=== PATIENT | male | born 1955 | race Caucasian/White ===

== ENCOUNTER 2019-05-04 08:22 | Day surgery (SDC) | payer SELFPAY ==
[2019-05-01 17:10] VITALS: BMI 41.3
[2019-05-04] VITALS (11 sets, daily range): BP systolic 148–189; BP diastolic 94–126; PULSE 89–121; RESP 9–20; TEMP 36.2–37.2; O2SAT 94–100
[2019-05-04] MEDS: sodium chloride 0.9% 1,000 ML 30 ML IV (08:57)
--- NOTE | 2019-05-04 09:32 | ANES.PREANE2 ---
Pre-Anesthetic Assessment Pre-Anesthetic Assessment: Height/Weight: Height 1.78 m Weight 130.635 kg Temp Pulse Resp BP Pulse Ox 98.0 F 121 H 16 189/123 96 05/04/19 08:38 05/04/19 08:38 05/04/19 08:38 05/04/19 08:38 05/04/19 08:38 Preop Diagnosis: Subcutaneous mass right shoulder Proposed Procedure: Operation Date: 05/04/19 10:15 Proposed Procedures p Excision of subcutaneous mass on right shoulder 73637 R22.9(Right) - Dallas Calixto MD Last intake: Intake Last Liquid Date 05/03/19 Last Liquid Time 19:00 Exam: Pre-Anes Outpt Exam: alert, oriented x 3, clear to auscultation bilaterally and regular rate & rhythm Airway: Submandibular: WNL Cervical ROM: Other MP: 3 Metabolic: Metabolic: Morbid obesity Anesthetic Plan: ASA status: 3 Meds/Allergies Current Medications: Current Medications Generic Name Dose Route Start Last Admin Trade Name Freq PRN Reason Stop Dose Admin Sodium Chloride 1,000 mls @ 30 ml s/hr 05/04/19 08:45 05/04/19 08:57 Sodium Chloride 0.9% IV 05/05/19 08:44 30 mls/hr .Q24H EVELYNE Administration PFSH Anesthesia PFSH: Social History Smoking and tobacco status: never smoked Alcohol intake: never Household members: family Marital status: Single Current occupational status: unemployed History of recent travel: No Data Anesthesia Cardiac Studies: No Data to Display
--- NOTE | 2019-05-04 09:44 | PM.HPUD ---
H&P update H&P Update: DATE OF SURGERY/PROCEDURE: 05/04/19 DATE H&P PERFORMED: 05/01/19 H&P UPDATE INFORMATION: H&P completed within last 30 days and No changes to prior documentation PREOP DIAGNOSIS: Subcutaneous mass right shoulder PLANNED PROCEDURE: Operation Date: 05/04/19 10:15 Proposed Procedures p Excision of subcutaneous mass on right shoulder 88624 R22.9(Right) - Dallas Calixto MD Full H&P Medications/Allergies: Current Medications: Current Medications Generic Name Dose Route Start Last Admin Trade Name Freq PRN Reason Stop Dose Admin Sodium Chloride 1,000 mls @ 30 ml s/hr 05/04/19 08:45 05/04/19 08:57 Sodium Chloride 0.9% IV 05/05/19 08:44 30 mls/hr .Q24H EVELYNE Administration Perinent History: Medical/Surgical History: Medical History (Updated 05/01/19 @ 11:08 by Dallas Calixto MD) Subcutaneous mass (Acute) Family History: Family History (Updated 05/01/19 @ 10:53 by Sherly Xiong LPN) Mother Hypertension Denies family history of Diabetes Anesthesia complication Bleeding disorder Cancer Social History: Social History Smoking and tobacco status: never smoked Alcohol intake: never Household members: family Marital status: Single Current occupational status: unemployed History of recent travel: No
[2019-05-04] MEDS: lidocaine 1% INJ 20 mL SUBCUT (10:42)
--- NOTE | 2019-05-04 11:30 | PM.OP ---
Operative Report Date of procedure: May 04, 2019 Pre-op Diagnosis: Subcutaneous mass right shoulder Post-op diagnosis: same Post-op Diagnosis: Lipoma measuring 20 x 15 cm Procedure Done: Excision of lipoma right shoulder measuring 20 x 15 cm Pathology: Right shoulder lipoma Surgeon: Dallas Calixto Anesthesia: General Estimated blood loss (mL): 10 Condition: stable Disposition: PACU Procedure: The patient was taken to the operating room and placed in the right lateral position under general anesthesia after IV antibiotic had been administered. A 8 cm transverse incision was made over the palpable mass on the right shoulder, subcutaneous tissue was divided and the lipoma was dissected free from the surrounding subcutaneous tissue and underlying muscular fascia using electrocautery. Hemostasis was ensured with cautery and the wound was irrigated saline. Using a 15 blade excess skin was excised and the subcutaneous tissues were approximated using running 3-0 Vicryl suture and skin was closed using running subcuticular 4-0 Monocryl suture and surgical glue. Pressure dressings were applied. Patient tolerated the procedure well. He was extubated and transferred to recovery room in stable condition.
[2019-05-04] MEDS: labetalol 5 mg/mL SDV 20mL IVP (11:43)
--- NOTE | 2019-05-04 11:54 | SUR.PHASEI ---
PT RESTING QUIETLY ON RA SINCE 114 NO DISTRESS WARM BLANKETS X 4 TO PT PT DENIES PAIN AND NAUSEA RT SHOULDER DRESSING D/I
== END 2019-05-04 12:45 | disposition home or self-care (01) ==
PROVIDERS: Family Provider Internal Medicine; PCP Internal Medicine; Visit Provider Surgery
PROC: (CPT 11406; principal; 2019-05-04 09:20)
DX: D17.39 Benign lipomatous neoplasm of skin and subcutaneous tissue of other sites (principal); E66.01 Morbid (severe) obesity due to excess calories; Z68.41 Body mass index [BMI] 40.0-44.9, adult; Z82.49 Family history of ischemic heart disease and other diseases of the circulatory system
CPT/HCPCS: 11406; 12036; 12345; 88304; J0330; J0690; J1100; J1885; J2001; J2405; J2704; J3010; J3490; J7030

== ENCOUNTER 2025-03-15 01:51 | Observation (INO) | payer MEDICARE, MEDICAID, SELFPAY ==
[2025-03-15] VITALS (24 sets, daily range): BP systolic 98–188; BP diastolic 48–100; PULSE 92–128; RESP 14–24; TEMP 36.6–37.1; O2SAT 89–100; BMI 43.7
--- NOTE | 2025-03-15 02:03 | CTR_ITS ---
PROCEDURE INFORMATION: Exam: CT Cervical Spine Without Contrast Exam date and time: 03/15/2025 2:19 AM Age: 70 years old Clinical indication: Injury or trauma; Blunt trauma; EMS arrival for fall with seizure. Per EMS, patient fell while in bathroom striking head on toilet and having witnessed seizure. Patient confused and combative. Dried blood on face and blood was suctioned from airway. ; Additional info: Trauma alert, seziure TECHNIQUE: Imaging protocol: Computed tomography of the cervical spine without contrast. Radiation optimization: All CT scans at this facility use at least one of these dose optimization techniques: automated exposure control; mA and/or kV adjustment per patient size (includes targeted exams where dose is matched to clinical indication); or iterative reconstruction. COMPARISON: CT head wo con* [id number] 03/15/2025 2:17 AM RADIATION DOSE METRICS: Total DLP (mGy-cm): 272.85 FINDINGS: Bones: No acute fracture of the cervical spine is identified. Extensive flowing bridging osteophytosis anteriorly from C2 through C7. Multilevel dorsal spondylosis as well, greatest at C4-C5. No severe central spinal canal stenosis. Lungs: Lung apices are unremarkable. Soft tissues: Unremarkable. CT/CT cervical spin wo con* [id number] IMPRESSION: No cervical spine fracture is identified.
--- NOTE | 2025-03-15 02:03 | CTR_ITS ---
PROCEDURE INFORMATION: Exam: CT Chest With Contrast; Diagnostic Exam date and time: 03/15/2025 2:21 AM Age: 70 years old Clinical indication: Injury or trauma; Abdominal wall; Blunt trauma (contusions or hematomas); Prior surgery; Surgery date: 6+ months; Surgery type: Left jhon; EMS arrival for fall with seizure. Per EMS, patient fell while in bathroom striking head on toilet and having witnessed seizure. Patient confused and combative. Dried blood on face and blood was suctioned from airway. ; Additional info: Trauma alert, seziure TECHNIQUE: Imaging protocol: Diagnostic computed tomography of the chest with contrast. Radiation optimization: All CT scans at this facility use at least one of these dose optimization techniques: automated exposure control; mA and/or kV adjustment per patient size (includes targeted exams where dose is matched to clinical indication); or iterative reconstruction. Contrast material: OMNI 350; Contrast volume: 100 ml; Contrast route: INTRAVENOUS (IV); COMPARISON: CT cervical spin wo con* [id number] 03/15/2025 2:19 AM RADIATION DOSE METRICS: Total DLP (mGy-cm): 1374.71 FINDINGS: Lungs: Atelectasis at the lung bases. Pleural spaces: Unremarkable. No pneumothorax. No pleural effusion. Heart: Unremarkable. No cardiomegaly. No pericardial effusion. Lymph nodes: Unremarkable. No enlarged lymph nodes. Vasculature: Atherosclerotic changes of the aorta. Bones/joints: Degenerative changes of the spine. Soft tissues: Unremarkable. PROCEDURE INFORMATION: Exam: CT Abdomen And Pelvis With Contrast Exam date and time: 03/15/2025 2:21 AM Age: 70 years old Clinical indication: Injury or trauma; Abdominal wall; Blunt trauma (contusions or hematomas); Prior surgery; Surgery date: 6+ months; Surgery type: Left jhon; EMS arrival for fall with seizure. Per EMS, patient fell while in bathroom striking head on toilet and having witnessed seizure. Patient confused and combative. Dried blood on face and blood was suctioned from airway. ; Additional info: Trauma alert, seziure TECHNIQUE: Imaging protocol: Computed tomography of the abdomen and pelvis with contrast. Radiation optimization: All CT scans at this facility use at least one of these dose optimization techniques: automated exposure control; mA and/or kV adjustment per patient size (includes targeted exams where dose is matched to clinical indication); or iterative reconstruction. Contrast material: OMNI 350; Contrast volume: 100 ml; Contrast route: INTRAVENOUS (IV); COMPARISON: No relevant prior studies available. RADIATION DOSE METRICS: Total DLP (mGy-cm): 1374.71 FINDINGS: Liver: Normal. No mass. Gallbladder and biliary ducts: Normal. No calcified stones. No ductal dilation. Pancreas: Normal. No ductal dilation. Spleen: Normal. No splenomegaly. Adrenal glands: Normal. No mass. Kidneys and ureters: Normal. No hydronephrosis. Stomach and bowel: Unremarkable. No obstruction. No mucosal thickening. Appendix: No evidence of appendicitis. Intraperitoneal space: Unremarkable. No free air. No significant fluid collection. Vasculature: Atherosclerotic changes of the aorta. Lymph nodes: Unremarkable. No enlarged lymph nodes. Urinary bladder: Unremarkable as visualized. Reproductive: Unremarkable as visualized. Bones/joints: Degenerative changes of the spine. Left hip arthroplasty. Motion artifact gives false appearance of bilateral iliac bone fractures. Soft tissues: Unremarkable. CT/CT chest abdpel w/*[id number] IMPRESSION: No acute traumatic findings.
--- NOTE | 2025-03-15 02:03 | CTR_ITS ---
PROCEDURE INFORMATION: Exam: CT Head Without Contrast Exam date and time: 03/15/2025 2:17 AM Age: 70 years old Clinical indication: Injury or trauma; EMS arrival for fall with seizure. Per EMS, patient fell while in bathroom striking head on toilet and having witnessed seizure. Patient confused and combative. Dried blood on face and blood was suctioned from airway. ; Additional info: Trauma alert, seziure TECHNIQUE: Imaging protocol: Computed tomography of the head without contrast. Radiation optimization: All CT scans at this facility use at least one of these dose optimization techniques: automated exposure control; mA and/or kV adjustment per patient size (includes targeted exams where dose is matched to clinical indication); or iterative reconstruction. COMPARISON: No relevant prior studies available. RADIATION DOSE METRICS: Total DLP (mGy-cm): 1062.65 FINDINGS: Brain: No acute infarction, hemorrhage, mass, or extra-axial fluid collection is identified. No midline shift. Cerebral ventricles: No hydrocephalus. Paranasal sinuses: [id number] mucosal thickening of paranasal sinuses. No air-fluid levels. Mastoid air cells: Mastoid air cells are grossly clear. Bones: Calvarium appears intact. Soft tissues: Unremarkable. CT/CT head wo con* [id number] IMPRESSION: No acute intracranial abnormality.
--- NOTE | 2025-03-15 02:10 | W.ED.FALL ---
HPI - Fall General: Chief Complaint: Fall Stated Complaint: FALL - SEIZURE Time Seen by Provider: 03/15/25 02:03 History of Present Illness: Patient is a 70-year-old male with past medical history of hypertension who presents to the ED with a reported seizure. Unclear events but EMS was called for confusion by patient's mother and when they found patient he was seemingly confused, he was initially declining transfer, and then in front of them, he had a 45-second GTC, reported no history of seizures. It was aborted before medications were given. Patient arrives altered and not able to contribute to history. Related Data Previous Rx's ?Medication ?Instructions ?Recorded amlodipine 10 mg tablet 10 mg PO DAILY #90 tabs 12/31/24 losartan 100 See Rx Instructions .Route 12/31/24 mg-hydrochlorothiazide 12.5 mg .COMPLEX #90 tabs tablet metoprolol succinate 50 mg 50 mg PO BID high blood pressure 12/31/24 tablet,extended release 24 hr #180 tabs Allergies Allergy/AdvReac Type Severity Reaction Status Date / Time No Known Allergies Allergy Verified 12/31/24 08:52 Review of Systems General: Reports: ROS unobtainable due to mental status [facility] ED PFSH: Medical History (Updated 03/15/25 @ 06:21 by Koffi Mix DO) BMI 40.0-44.9, adult Allergic rhinitis due to allergen Hypertension Surgical History Status post excision of lipoma Right shoulder 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 Patient and his mother live together to pull finances. She walks with a walker. Household members: family Marital status: Single Current occupational status: unemployed and retired Previous occupational history: [employer] Physical Exam Narrative: EXAM NARRATIVE: Patient obese, GCS 12, tachycardic, tachypneic, saturating in the low 90s on 2 L nasal cannula. Patient encephalopathic, GCS 12, E4V3M5. Spontaneous and symmetric clean moving all 4 extremities but not to command. Sounds mildly rhonchorous, face covered with slight amount of blood, breath sounds decreased but present bilaterally. Tachycardic, hypertensive, moderate nonpitting edema with findings of chronic venous stasis dermatitis. Abdomen protuberant but soft and nondistended, no chest wall tenderness, no external signs of trauma. Course Vital Signs: Vital signs: Vital Signs Temperature 98.7 F 03/15/25 02:04 Pulse Rate 109 H 03/15/25 05:31 Respiratory Rate 15 03/15/25 05:31 Blood Pressure 170/99 03/15/25 05:31 Pulse Oximetry 93 03/15/25 05:31 Oxygen Delivery Me thod Room Air 03/15/25 02:04 MDM - Fall Medical Decision Making -ddx: Toxic metabolic encephalopathy, sepsis, seizure, head trauma, dehydration, heart failure, UTI, ACS, dysrhythmia, aspiration - Patient MRIs GCS 12, was apparently 5 but seemingly that was postictal, had a 45-second self aborting seizure, reported first history of this, apparently lives at home and normally takes care of his mom, only takes medication for high blood pressure but has not followed up in quite some time. Patient with mild evidence of aspiration, encephalopathic, very agitated not following commands and had to give 5 of IV Versed to facilitate workup and take to CT scanner. - Had brief episode of hypoxia in CT scanner when he was laid flat, he was placed on a nonrebreather with improvement in his saturations and stabilized upon sitting up, required restraints for a brief period of time. - After about an hour and patient initially stabilized, his mental status seemed to return and he could not have full conversations, had no recollection of the past few hours, confirms he has no history of seizures. Initial white count of 20, with very erratic vital signs and his mental status on arrival, was covered with broad-spectrum antibiotics, given 2 g Keppra. No recurrent episodes of seizure-like activity, believe lactate of 10 and ammonia being over 100 to be attributable to his seizure. Patient most likely has sepsis of unknown origin. No evidence of traumatic injury on his james CT scans. - Patient's repeat lactate was 2.5, had elevated ammonia and lactate of 10 at first but seemingly attributable to seizure, no more activity. Remainder of labs relatively unremarkable, no obvious etiology of infection but for continued bacteremia evaluation, monitoring of his seizures, overall respiratory status and vital signs, he was admitted to the hospital in immediately stabilized condition at this time. Lab Data 03/15/25 01:57 03/15/25 01:57 Radiology Impressions Cervical Spine CT 03/15/25 02:03 IMPRESSION: No cervical spine fracture is identified. Chest/Abdomen/Pelvis CT 03/15/25 02:03 IMPRESSION: No acute traumatic findings. IMPRESSION: No acute traumatic findings. Head CT 03/15/25 02:03 IMPRESSION: No acute intracranial abnormality. Laboratory Results WBC 19.92 10^3/uL (3.29-11.43) H 03/15/25 01:57 RBC 4.64 10^6/uL (3.85-5.65) 03/15/25 01:57 Hgb 13.80 g/dL (11.27-16.99) 03/15/25 01:57 Hct 42.2 % (37-53) 03/15/25 01:57 MCV 90.9 fl (82-101) 03/15/25 01:57 MCH 29.7 pg (27-33) 03/15/25 01:57 MCHC 32.7 g/dL (30-55) 03/15/25 01:57 RDW 13.8 % (12.1-15.1) 03/15/25 01:57 Plt Count 451 10^3/cmm (157-399) H 03/15/25 01:57 MPV 9.2 fL (7.4-10.4) 03/15/25 01:57 Neut % (Auto) 69.2 % 03/15/25 01:57 Lymph % (Auto) 22.8 % 03/15/25 01:57 [place] % (Auto) 5.8 % 03/15/25 01:57 Eos % (Auto) 1.1 % 03/15/25 01:57 Baso % (Auto) 0.4 % 03/15/25 01:57 Neut # (Auto) 13.79 10^3/uL (1.8-7.7) H 03/15/25 01:57 Lymph # (Auto) 4.5 10^3/uL (0.8-4.8) 03/15/25 01:57 [place] # (Auto) 1.2 10^3/uL (0.2-0.9) H 03/15/25 01:57 Eos # (Auto) 0.2 10^3/uL (0.0-0.8) 03/15/25 01:57 Baso # (Auto) 0.1 10^3/uL (0.0-0.1) 03/15/25 01:57 Nucleated RBC % (auto) 0 % 03/15/25 01:57 Nucleated RBCs # 0.0 /100WBC 03/15/25 01:57 PT 12.70 SECONDS (12.1-14.9) 03/15/25 01:57 INR 0.89 (0.8-1.2) 03/15/25 01:57 Sodium 140 mmol/L (136-145) 03/15/25 01:57 Potassium 3.4 mmol/L (3.5-5.1) L 03/15/25 01:57 Chloride 99 mmol/L (98-107) 03/15/25 01:57 Carbon Dioxide 20 mmol/L (22-29) L 03/15/25 01:57 Anion Gap 24.4 (5-19) H 03/15/25 01:57 BUN 22 mg/dL (8-23) 03/15/25 01:57 Creatinine 1.1 mg/dL (0.7-1.2) 03/15/25 01:57 GFR Calculation 66.6 mL/min (90-130) L 03/15/25 01:57 Glucose 176 mg/dL (65-115) H 03/15/25 01:57 Estimat Average Glucose 111 03/15/25 01:57 Hemoglobin A1c 5.5 % (4.0-6.0) 03/15/25 01:57 Calculated Osmolality 298 mOsm/kg (285-295) H 03/15/25 01:57 Lactic Acid 10.7 mmol/L (0.5-2.2) H* 03/15/25 01:57 Lactic Acid (Sepsis) 2.5 mmol/L (0.5-2.2) H 03/15/25 04:48 Calcium 9.0 mg/dL (8.5-10.5) 03/15/25 01:57 Phosphorus 3.9 mg/dL (2.5-4.5) 03/15/25 01:57 Magnesium 2.2 mg/dL (1.7-2.3) 03/15/25 01:57 Total Bilirubin 0.3 mg/dL (0.15-1.2) 03/15/25 01:57 AST 17 U/L (0-40) 03/15/25 01:57 ALT 13 U/L (0-41) 03/15/25 01:57 Alkaline Phosphatase 90 U/L (40-130) 03/15/25 01:57 Ammonia 118 umol/L (16-60) H 03/15/25 01:57 Creatine Kinase 181 U/L (39-308) 03/15/25 01:57 Total Protein 6.9 g/dL (6.6-8.7) 03/15/25 01:57 Albumin 4.2 g/dL (3.5-5.2) 03/15/25 01:57 Globulin 2.7 g/dL (1.3-4.6) 03/15/25 01:57 Procalcitonin 0.10 ng/mL (0-0.5) 03/15/25 01:57 Urine Color Yellow (Yellow) 03/15/25 05:00 Urine Appearance Clear (CLEAR) 03/15/25 05:00 Urine pH 5.0 (5-7) 03/15/25 05:00 Ur Specific [place] 1.056 (1.005-1.030) H 03/15/25 05:00 Urine Protein Trace (Negative) A 03/15/25 05:00 Urine Glucose (UA) Negative (Normal) 03/15/25 05:00 Urine Ketones Negative (Negative) 03/15/25 05:00 Urine Blood Negative (Negative) 03/15/25 05:00 Urine Nitrate Negative (Negative) 03/15/25 05:00 Urine Bilirubin Negative (Negative) 03/15/25 05:00 Urine Urobilinogen 0.2 mg/dL (Negative) 03/15/25 05:00 Ur Leukocyte Esterase Negative (Negative) 03/15/25 05:00 Urine RBC 0-2 /hpf (0-2) 03/15/25 05:00 Urine WBC 0-5 /hpf (0-5) 03/15/25 05:00 Ur Squamous Epith Cells 0-5 /hpf (0-5) 03/15/25 05:00 Amorphous Sediment Not Reportable 03/15/25 05:00 Urine Bacteria None seen /hpf (NONE) 03/15/25 05:00 Hyaline Casts 1.65 /lpf 03/15/25 05:00 Urine Opiates Screen Negative ng/mL (Negative) 03/15/25 05:00 Ur Barbiturates Screen Negative ng/mL (Negative) 03/15/25 05:00 Ur Phencyclidine Scrn Negative ng/mL (Negative) 03/15/25 05:00 Ur Amphetamines Screen Negative ng/mL (Negative) 03/15/25 05:00 U Benzodiazepines Scrn Negative ng/mL (Negative) 03/15/25 05:00 Urine Cocaine Screen Negative ng/mL (Negative) 03/15/25 05:00 U Marijuana (THC) Screen Negative ng/mL (Negative) 03/15/25 05:00 Ethyl Alcohol < 10 mg/dL (0-10) 03/15/25 01:57 Blood Type O Positive 03/15/25 02:42 Rho(D) Type Rh positive 03/15/25 02:42 Antibody Screen Negative 03/15/25 02:42 All radiology interpretation(s) finalized by discharge Critical Care Time Critical Care Time: Critical Care Time: Yes Total Critical Care Time: 41 Attestation: Encephalopathy with depressed GCS requiring frequent airway manipulation and reevaluation for need for intubation, bacteremia of unknown origin, multiple vital sign abnormalities requiring intervention. Discharge Plan Discharge Patient Disposition: Admitted As Inpatient Admit Provider: Desmond Barillas Clinical Impression: Seizure, Bacteremia, Encephalopathy Condition: Stable Coding Level of Care Code ED Idea Worker for Mayra Aparicio
[2025-03-15 02:13] LABS: Hematocrit 42.2 % (37-53); Hemoglobin 13.80 g/dL (11.27-16.99); Mean Corpuscular HGB Conc 32.7 g/dL (30-55); Mean Corpuscular Hemoglobin 29.7 pg (27-33); Mean Corpuscular Volume 90.9 fl (82-101); Nucleated Red Blood Cells % 0 %; Platelet Count 451 10^3/cmm (157-399); Red Blood Count 4.64 10^6/uL (3.85-5.65); White Blood Count 19.92 10^3/uL (3.29-11.43)
[2025-03-15 02:29] LABS: INR 0.89 (0.8-1.2); Prothrombin Time 12.70 SECONDS (12.1-14.9)
[2025-03-15 02:38] LABS: Alanine Aminotransferase 13 U/L (0-41); Albumin Level 4.2 g/dL (3.5-5.2); Alkaline Phosphatase 90 U/L (40-130); Anion Gap 24.4 (5-19); Aspartate Amino Transferase 17 U/L (0-40); Blood Urea Nitrogen 22 mg/dL (8-23); Calcium 9.0 mg/dL (8.5-10.5); Carbon Dioxide 20 mmol/L (22-29); Chloride 99 mmol/L (98-107); Globulin 2.7 g/dL (1.3-4.6); Glucose 176 mg/dL (65-115); Osmolality Calculated 298 mOsm/kg (285-295); Potassium 3.4 mmol/L (3.5-5.1); Sodium 140 mmol/L (136-145); Total Protein 6.9 g/dL (6.6-8.7)
[2025-03-15] MEDS: cefepime 2,000 mg SDV 2000 MG IVP ×3 (02:38→17:33)
[2025-03-15] MEDS: iohexol 350 mg/mL 500 mL Btl (per mL) IV (02:38)
[2025-03-15 02:39] LABS: Ammonia 118 umol/L (16-60)
[2025-03-15 02:41] LABS: Alcohol Level < 10 mg/dL (0-10)
[2025-03-15 02:42] LABS: Lactic Sepsis W/Reflex 10.7 mmol/L (0.5-2.2)
[2025-03-15] MEDS: midazolam 1 mg/mL INJ 2 mL 5 MG IVP (02:46)
[2025-03-15 02:47] LABS: ABG PCO2 45.3 mmHg (35-45); ABG PH Result 7.33 (7.35-7.45); Arterial Blood Gas Hematocrit 40.1 % (42-52); Base Excess VBG -2.2 mmol/L (-3.0-3.0); Blood Gas Sample Type Venous; HCO3 ABG 23.9 mmol/L (22-26); HCO3 VBG 23.9 mmol/L (24-28); PCO2 VBG 45.3 mmHg (41-51); PO2 ABG 55.6 mmHg (80.0-100.0); PO2 VBG 55.6 mmHg (25-40); Venous Blood Gas Hematocrit 40.1 % (42-52); pH VBG 7.33 (7.32-7.42)
[2025-03-15] MEDS: levETIRAcetam 2,000 MG/200 ML PREMIX 400 MG IV (02:47)
[2025-03-15 03:01] LABS: Procalcitonin 0.10 ng/mL (0-0.5)
[2025-03-15 03:57] LABS: Reflex Lactate Order REFLEX LACTIC ORDERD
[2025-03-15 05:10] LABS: Lactic Acid level (Lactate) 2.5 mmol/L (0.5-2.2)
[2025-03-15 05:17] LABS: Glucose Urine UA Negative (Normal); Nitrate Urine Negative (Negative)
[2025-03-15 05:22] LABS: Add Urine Microscopic? YES
[2025-03-15 05:23] LABS: Specific Gravity, Urine 1.056 (1.005-1.030)
[2025-03-15 05:27] LABS: PCP Screen Urine Negative (Negative)
--- NOTE | 2025-03-15 05:57 | PM.HP ---
Providers/Chief Complaint Admitting Physician: Desmond Barillas MD Primary Care Provider: Diaz Ashton MD Chief Complaint: FALL - SEIZURE History of Present Illness Lucas Leon is a 70 year old male brought in following witnessed seizure. His mother found him in the bathroom facial injury next to the toilet. It was apparent that he had fallen and hit the toilet. Patient does not recall going to the bathroom. He has never had a seizure. He is not typically unsteady on his feet and does not have a history of falling. He denies cardiac arrhythmia or syncope. Patient initially had Elsa Coma Scale of 5 but it was 11 by the time he got to the emergency department. He was seen by Dr. Mix and suspected of seizure and started on levetiracetam. Patient also had elevated lactic acid and tachycardia initially suspicious for sepsis so started on broad-spectrum antibiotics. Patient has had blood culture sent and urine is negative for infection. CT chest abdomen pelvis also negative for trauma or pneumonia. CT head negative CT C-spine negative. Patient denies alcohol abuse states he does not drink at all he has never had liver disease or elevated ammonia. He does snore but has never been diagnosed with sleep apnea and does not get treated for such. He does not smoke cigarettes or use any street drugs. 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 Patient denies head injury ever Review of Systems Narrative: General No fevers chills weight gain he has had 10 pounds weight loss with effort lifting weights and walking patient drinks juice 2 glasses a day and heavy cream with his coffee. CV no chest pain palpitations he has had some leg edema Respiratory positive for snoring GI no nausea vomiting diarrhea constipation nocturia 2 times a night no dysuria hematuria Neuro no past seizures strokes Malignancy negative for cancers Medications/Allergies Home Medications ?Medication ?Instructions ?Recorded ?Confirmed ?Last Taken ?Type amlodipine 10 mg tablet 10 mg PO DAILY #90 tabs 12/31/24 12/31/24 Unknown Rx losartan 100 See Rx Instructions .Route 12/31/24 12/31/24 Unknown Rx mg-hydrochlorothiazide 12.5 mg .COMPLEX #90 tabs tablet metoprolol succinate 50 mg 50 mg PO BID high blood pressure 12/31/24 12/31/24 Unknown Rx tablet,extended release 24 hr #180 tabs Allergies Allergy/AdvReac Type Severity Reaction Status Date / Time No Known Allergies Allergy Verified 12/31/24 08:52 PFSH Acute PFSH: Medical History (Updated 03/15/25 @ 06:05 by Desmond Barillas MD) BMI 40.0-44.9, adult Allergic rhinitis due to allergen Hypertension Surgical History Status post excision of lipoma Right shoulder 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 Patient and his mother live together to pull finances. She walks with a walker. 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 He tracks with his eyes normally Oropharynx Mallampati 4 Neck patient has a short thick neck no obvious JVD CV regular borderline tachycardic rate and rhythm no loud murmurs Lungs clear to auscultation bilaterally Abdomen positive bowel tones soft obese nontender Calves 2+ bilateral pretibial edema with chronic venous stasis change Feet 2-3+ dorsal pedal edema dorsal pedal pulse 2+ radial pulses 2+ Data 03/15/25 01:57 03/15/25 01:57 Micro: Microbiology 03/15/25 02:42 Blood Culture - Preliminary Blood SPECIMEN COLLECTED 03/15/25 02:40 Blood Culture - Preliminary Blood SPECIMEN COLLECTED A&P Assessment and plan 1. Seizure: Patient with witnessed tonic-clonic seizure following his fall with facial injury. CT of the head was negative. Cause for his fall thought to be seizure as well. Patient had elevated lactic acid and ammonia but CPK was normal. Patient started on levetiracetam which will be continued. Consider outpatient follow-up with neurology. Consider workup for sleep apnea and treatment for the same 2. Hyperammonemia: Ammonia level was at 100 we will recheck. Patient does not have altered mental status 3. Lactic acidosis: Lactic acid was 10 now down to 2.5 findings are not consistent with sepsis at this time and more consistent with seizure related lactic acidosis 4. Sleep apnea-like behavior: Patient was snoring and Mallampati 4 oropharynx and morbid obesity now with seizures. High suspicion for sleep apnea and counseled that he should get tested for sleep study 5. BMI 40.0-44.9, adult: Patient drinking calories in form of heavy cream and coffee as well as juice daily. He is receptive to counseling and willing to follow calorie restricted diet 6. Hypertension: Resume home blood pressure medications including HCTZ but replace potassium. Additionally check magnesium and phosphorus PDMP PDMP Reviewed: Not Reviewed Attestations Medical Necessity Statement*: Patient is admitted in the hospital on observation post seizure started on antiepileptics and will require less than 2 midnights expected Coding Level of Care Code 30486 Diagnoses Seizure R56.9 Hyperammonemia E72.20 Lactic acidosis E87.20 Sleep apnea-like behavior G47.39 BMI 40.0-44.9, adult Z68.41 Hypertension I10 Time Spent (min) 75
[2025-03-15 06:10] LABS: Magnesium 2.2 mg/dL (1.7-2.3)
[2025-03-15 06:11] LABS: Estmated Average Glucose 111; Hemoglobin A1C 5.5 % (4.0-6.0)
--- NOTE | 2025-03-15 06:49 | PC.NURSE ---
I rajiv up 40 mg of etomidate and 150 mg of succincholyine to intubate this pt per Dr. Mix. Dr. Mix then decided not to intubate. I wasted the medications by putting them in the [employer] bin in ER 11.
[2025-03-15 06:58] LABS: Thyroid Stimulating Hormone 5.89 uIU/mL (0.27-4.20)
[2025-03-15] MEDS: sodium chlor 0.9% + KCl 20 mEq 20 MEQ/1,000 ML BAG 100 MEQ IV ×2 (08:28→17:33)
[2025-03-15] MEDS: levETIRAcetam 750 MG in sodium chloride 0.9% (100 ml) 100 ML 430 MG IV (16:14)
[2025-03-15] MEDS: metoprolol succinate ER (24 HR) 50 mg Tablet PO (16:15)
--- NOTE | 2025-03-15 19:00 | PM.MISC ---
Miscellaneous Note Purpose of Documentation: Post admission follow up and clinical assessment: Note: physical exam: General: Morbidly obese gentleman with short neck alert and oriented, lying comfortably without any distress HEENT: Normocephalic, atraumatic, having a bruise on the nose and tongue laceration on examination with dried blood on the lower lip possible tongue bite? Cardio: normal rate rhythm, normal S1-S2 without any murmurs, rubs, or gallops and JVD normal Respiratory: normal vascular breathing on auscultation without any wheezes, stridor, rhonchi GI: Abdomen soft, nontender, nondistended, normoactive bowel sounds present all 4 quadrants, Neuro: intact cranial nerves motor and sensory and cerebellar/coordination function without any focal neurological deficit Behavior: Appropriate and cooperative Extremities: Adequate palpable pulses, no edema or cyanosis observed Skin: grossly unremarkable exam Assessment/Plan: Seizures Case of seizures, high likely, not sure if first episode? 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
--- NOTE | 2025-03-15 21:17 | ECG_ITS ---
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[id number] Requested By: Heladio Lopez Order Number: [id number] Reading MD: MACIE DC Measurements Intervals [place] Rate: 101 P: 48 IA: 179 QRS: -57 QRSD: 128 T: 65 QT: 374 QTc: 486 Interpretive Statements SINUS TACHYCARDIA RIGHT BUNDLE BRANCH BLOCK [120+ ms QRS DURATION, UPRIGHT V1, 40+ ms S IN I/aVL/V4/V5/V6] LEFT ANTERIOR FASCICULAR BLOCK [QRS AXIS <= -45, QR IN I, RS IN II] PROBABLE SEPTAL MYOCARDIAL INFARCTION , OF INDETERMINATE AGE [35 ms Q WAVE IN V1/V2] Compared to ECG 03/09/2014 12:28:22 Right bundle-branch block now present Left anterior fascicular block now present Sinus rhythm no longer present Electronically Signed On 03-17-2025 20:39:31 DRUG ABUSE TECHNICIAN by MACIE DC [email or web address]
[2025-03-16] VITALS: BP 174/98; PULSE 108; RESP 20; TEMP 36.9; O2SAT 97
[2025-03-16] MEDS: sodium chlor 0.9% + KCl 20 mEq 20 MEQ/1,000 ML BAG 100 MEQ IV (03:20)
[2025-03-16] MEDS: levETIRAcetam 750 MG in sodium chloride 0.9% (100 ml) 100 ML 430 MG IV (03:21)
[2025-03-16] MEDS: cefepime 2,000 mg SDV 2000 MG IVP (03:21)
[2025-03-16 04:00] VITALS: BP 149/82; PULSE 109; RESP 18; TEMP 36.9; O2SAT 92
[2025-03-16 05:12] LABS: Hematocrit 39.5 % (37-53); Hemoglobin 13.20 g/dL (11.27-16.99); Mean Corpuscular HGB Conc 33.4 g/dL (30-55); Mean Corpuscular Hemoglobin 30.2 pg (27-33); Mean Corpuscular Volume 90.4 fl (82-101); Nucleated Red Blood Cells % 0 %; Platelet Count 306 10^3/cmm (157-399); Red Blood Count 4.37 10^6/uL (3.85-5.65); White Blood Count 9.05 10^3/uL (3.29-11.43)
[2025-03-16] MEDS: LOSARTAN 100 MG TABLET PO (05:21)
[2025-03-16] MEDS: metoprolol succinate ER (24 HR) 50 mg Tablet PO (05:21)
[2025-03-16 05:43] LABS: Alanine Aminotransferase 15 U/L (0-41); Albumin Level 3.4 g/dL (3.5-5.2); Alkaline Phosphatase 64 U/L (40-130); Anion Gap 13.3 (5-19); Aspartate Amino Transferase 41 U/L (0-40); Blood Urea Nitrogen 11 mg/dL (8-23); Calcium 7.8 mg/dL (8.5-10.5); Carbon Dioxide 22 mmol/L (22-29); Chloride 112 mmol/L (98-107); Globulin 2.1 g/dL (1.3-4.6); Glucose 84 mg/dL (65-115); Osmolality Calculated 293 mOsm/kg (285-295); Potassium 5.3 mmol/L (3.5-5.1); Sodium 142 mmol/L (136-145); Total Protein 5.5 g/dL (6.6-8.7)
[2025-03-16 06:00] VITALS: BMI 45.6
[2025-03-16 08:29] VITALS: BP 153/86; PULSE 108; RESP 19; TEMP 36.5; O2SAT 94
[2025-03-16 09:54] LABS: Free T4 Free Thyroxine 1.16 ng/dL (0.82-1.77)
[2025-03-16 11:12] VITALS: BP 130/74; PULSE 101; RESP 19; TEMP 36.9; O2SAT 96
[2025-03-16 14:49] VITALS: BP 130/74; PULSE 101; RESP 19; TEMP 36.9; O2SAT 96
--- NOTE | 2025-03-16 18:50 | PM.DCS ---
Discharge Providers Date of Admission: 03/15/25 06:30 Date of Discharge: March 16, 2025 Attending Provider at Admission: Desmond Barillas MD Attending Provider at Discharge: Heladio Lopez MD Primary Care Provider: Diaz Ashton MD Diagnoses at Discharge Discharge Diagnosis 1. Seizure: 2. Hyperammonemia: 3. Lactic acidosis: 4. Sleep apnea-like behavior: 5. BMI 40.0-44.9, adult: 6. Primary hypertension: Reason for Visit Reason for Visit: FALL - SEIZURE Brief History: As per the previous admitting physician note in the retrospective note review: Lucas Leon is a 70 year old male brought in following witnessed seizure. His mother found him in the bathroom facial injury next to the toilet. It was apparent that he had fallen and hit the toilet. Patient does not recall going to the bathroom. He has never had a seizure. He is not typically unsteady on his feet and does not have a history of falling. He denies cardiac arrhythmia or syncope. Patient initially had Elsa Coma Scale of 5 but it was 11 by the time he got to the emergency department. He was seen by Dr. Mix and suspected of seizure and started on levetiracetam. Patient also had elevated lactic acid and tachycardia initially suspicious for sepsis so started on broad-spectrum antibiotics. Patient has had blood culture sent and urine is negative for infection. CT chest abdomen pelvis also negative for trauma or pneumonia. CT head negative CT C-spine negative. Patient denies alcohol abuse states he does not drink at all he has never had liver disease or elevated ammonia. He does snore but has never been diagnosed with sleep apnea and does not get treated for such. He does not smoke cigarettes or use any street drugs. 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 Patient denies head injury ever Hospital Course Hospital Course Patient admitted as a case of seizures. And TIA was ruled out. I consulted neurologist and further recommended to start the patient on Keppra 750 mg twice daily. Patient labs improved after hydration. Keppra continued as outpatient. EEG and MRI ordered with neurology follow-up. Patient was informed about his plan of care and agreed with this. Primary care referral also provided for healthcare maintenance. Medications were reconciled after confirmation and according to patient comorbidities and appropriate follow-ups and referrals were provided at the time of discharge. Patient condition has been discussed at length with the patient/family, I have independently reviewed the chart labs imaging/diagnostics/EKG. the goals of care and code status with the patient/family/NOK/legal loss prevention representative, and documented accordingly. The management has been done according to the current clinical condition with respect to patient goals of care and based on recommendations/guidelines. The patient/family has been informed about the current condition and further plan of care. Agreed with the plan of care and understood without any language barrier. Every effort was made to ensure accuracy of content management consultant. Any obvious errors or omissions should be clarified with the author of the document. Physical Exam Narrative: General: Morbidly obese gentleman with short neck alert and oriented, lying comfortably without any distress HEENT: Normocephalic, atraumatic, having a bruise on the nose and tongue laceration on examination possible tongue bite Cardio: normal rate rhythm, normal S1-S2 without any murmurs, rubs, or gallops and JVD normal Respiratory: normal vascular breathing on auscultation without any wheezes, stridor, rhonchi GI: Abdomen soft, nontender, nondistended, normoactive bowel sounds present all 4 quadrants, Neuro: intact cranial nerves motor and sensory and cerebellar/coordination function without any focal neurological deficit Behavior: Appropriate and cooperative Extremities: Adequate palpable pulses, patient having bilateral chronic skin changes possible underlying venous insufficiency? However patient did not complain of symptoms Discharge Data Studies Completed and Pending Completed Studies During Hospitalization Category Date Time Status CT cervical spin wo con* [id number] Stat Cat Scan 03/15/25 02:[address] chest abdpel w/*[id number] Stat Cat Scan 03/15/25 02:[address] head wo con* [id number] Stat Cat Scan 03/15/25 02:03 Completed Pending at discharge Category Date Time Status Blood Culture Stat Lab 03/15/25 02:42 Results Radiology Impressions Cervical Spine CT 03/15/25 02:03 IMPRESSION: No cervical spine fracture is identified. Chest/Abdomen/Pelvis CT 03/15/25 02:03 IMPRESSION: No acute traumatic findings. IMPRESSION: No acute traumatic findings. Head CT 03/15/25 02:03 IMPRESSION: No acute intracranial abnormality. Laboratory Results WBC 9.05 10^3/uL (3.29-11.43) 03/16/25 04:33 RBC 4.37 10^6/uL (3.85-5.65) 03/16/25 04:33 Hgb 13.20 g/dL (11.27-16.99) 03/16/25 04:33 Hct 39.5 % (37-53) 03/16/25 04:33 MCV 90.4 fl (82-101) 03/16/25 04:33 MCH 30.2 pg (27-33) 03/16/25 04:33 MCHC 33.4 g/dL (30-55) 03/16/25 04:33 RDW 14.0 % (12.1-15.1) 03/16/25 04:33 Plt Count 306 10^3/cmm (157-399) D 03/16/25 04:33 MPV 9.2 fL (7.4-10.4) 03/16/25 04:33 Neut % (Auto) 67.5 % 03/16/25 04:33 Lymph % (Auto) 19.4 % 03/16/25 04:33 Cotton % (Auto) 11.0 % 03/16/25 04:33 Eos % (Auto) 1.7 % 03/16/25 04:33 Baso % (Auto) 0.2 % 03/16/25 04:33 Neut # (Auto) 6.10 10^3/uL (1.8-7.7) 03/16/25 04:33 Lymph # (Auto) 1.8 10^3/uL (0.8-4.8) 03/16/25 04:33 Cotton # (Auto) 1.0 10^3/uL (0.2-0.9) H 03/16/25 04:33 Eos # (Auto) 0.2 10^3/uL (0.0-0.8) 03/16/25 04:33 Baso # (Auto) 0.0 10^3/uL (0.0-0.1) 03/16/25 04:33 Nucleated RBC % (auto) 0 % 03/16/25 04:33 Nucleated RBCs # 0.0 /100WBC 03/16/25 04:33 PT 12.70 SECONDS (12.1-14.9) 03/15/25 01:57 INR 0.89 (0.8-1.2) 03/15/25 01:57 Specimen Type Venous 03/15/25 02:42 Sample Site Not Reportable 03/15/25 02:42 ABG pH 7.33 (7.35-7.45) L 03/15/25 02:42 ABG pCO2 45.3 mmHg (35-45) H 03/15/25 02:42 ABG pO2 55.6 mmHg (80.0-100.0) L 03/15/25 02:42 ABG HCO3 23.9 mmol/L (22-26) 03/15/25 02:42 ABG Base Excess -2.2 mmol/L (-2.0-2.0) L 03/15/25 02:42 Devan Test N/a 03/15/25 02:42 VBG pH 7.33 (7.32-7.42) 03/15/25 02:42 VBG pCO2 45.3 mmHg (41-51) 03/15/25 02:42 VBG pO2 55.6 mmHg (25-40) H 03/15/25 02:42 VBG HCO3 23.9 mmol/L (24-28) L 03/15/25 02:42 VBG Base Excess -2.2 mmol/L (-3.0-3.0) 03/15/25 02:42 VBG Hematocrit 40.1 % (42-52) L 03/15/25 02:42 Hematocrit 40.1 % (42-52) L 03/15/25 02:42 O2 Delivery Device Not Reportable 03/15/25 02:42 Route Sales Associate ID [email or web address] 03/15/25 02:42 Sodium 142 mmol/L (136-145) 03/16/25 04:33 Potassium 5.3 mmol/L (3.5-5.1) H 03/16/25 04:33 Chloride 112 mmol/L (98-107) H 03/16/25 04:33 Carbon Dioxide 22 mmol/L (22-29) 03/16/25 04:33 Anion Gap 13.3 (5-19) 03/16/25 04:33 BUN 11 mg/dL (8-23) 03/16/25 04:33 Creatinine 0.6 mg/dL (0.7-1.2) L 03/16/25 04:33 GFR Calculation 134.0 mL/min (90-130) H 03/16/25 04:33 Glucose 84 mg/dL (65-115) 03/16/25 04:33 Estimat Average Glucose 111 03/15/25 01:57 Hemoglobin A1c 5.5 % (4.0-6.0) 03/15/25 01:57 Calculated Osmolality 293 mOsm/kg (285-295) 03/16/25 04:33 Lactic Acid 10.7 mmol/L (0.5-2.2) H* 03/15/25 01:57 Lactic Acid (Sepsis) 2.5 mmol/L (0.5-2.2) H 03/15/25 04:48 Calcium 7.8 mg/dL (8.5-10.5) L 03/16/25 04:33 Phosphorus 3.9 mg/dL (2.5-4.5) 03/15/25 01:57 Magnesium 2.2 mg/dL (1.7-2.3) 03/15/25 01:57 Total Bilirubin 0.8 mg/dL (0.15-1.2) 03/16/25 04:33 AST 41 U/L (0-40) H 03/16/25 04:33 ALT 15 U/L (0-41) 03/16/25 04:33 Alkaline Phosphatase 64 U/L (40-130) 03/16/25 04:33 Ammonia 118 umol/L (16-60) H 03/15/25 01:57 Creatine Kinase 181 U/L (39-308) 03/15/25 01:57 Total Protein 5.5 g/dL (6.6-8.7) L 03/16/25 04:33 Albumin 3.4 g/dL (3.5-5.2) L 03/16/25 04:33 Globulin 2.1 g/dL (1.3-4.6) 03/16/25 04:33 Procalcitonin 0.10 ng/mL (0-0.5) 03/15/25 01:57 TSH 5.89 uIU/mL (0.27-4.20) H 03/15/25 01:57 Free T4 1.16 ng/dL (0.82-1.77) 03/16/25 09:00 Free T3 2.4 PG/ML (2.0-4.4) 03/16/25 09:00 Urine Color Yellow (Yellow) 03/15/25 05:00 Urine Appearance Clear (CLEAR) 03/15/25 05:00 Urine pH 5.0 (5-7) 03/15/25 05:00 Ur Specific [place] 1.056 (1.005-1.030) H 03/15/25 05:00 Urine Protein Trace (Negative) A 03/15/25 05:00 Urine Glucose (UA) Negative (Normal) 03/15/25 05:00 Urine Ketones Negative (Negative) 03/15/25 05:00 Urine Blood Negative (Negative) 03/15/25 05:00 Urine Nitrate Negative (Negative) 03/15/25 05:00 Urine Bilirubin Negative (Negative) 03/15/25 05:00 Urine Urobilinogen 0.2 mg/dL (Negative) 03/15/25 05:00 Ur Leukocyte Esterase Negative (Negative) 03/15/25 05:00 Urine RBC 0-2 /hpf (0-2) 03/15/25 05:00 Urine WBC 0-5 /hpf (0-5) 03/15/25 05:00 Ur Squamous Epith Cells 0-5 /hpf (0-5) 03/15/25 05:00 Amorphous Sediment Not Reportable 03/15/25 05:00 Urine Bacteria None seen /hpf (NONE) 03/15/25 05:00 Hyaline Casts 1.65 /lpf 03/15/25 05:00 Urine Opiates Screen Negative ng/mL (Negative) 03/15/25 05:00 Ur Barbiturates Screen Negative ng/mL (Negative) 03/15/25 05:00 Ur Phencyclidine Scrn Negative ng/mL (Negative) 03/15/25 05:00 Ur Amphetamines Screen Negative ng/mL (Negative) 03/15/25 05:00 U Benzodiazepines Scrn Negative ng/mL (Negative) 03/15/25 05:00 Urine Cocaine Screen Negative ng/mL (Negative) 03/15/25 05:00 U Marijuana (THC) Screen Negative ng/mL (Negative) 03/15/25 05:00 Ethyl Alcohol < 10 mg/dL (0-10) 03/15/25 01:57 Blood Type O Positive 03/15/25 02:42 Rho(D) Type Rh positive 03/15/25 02:42 Antibody Screen Negative 03/15/25 02:42 Vitals Last Vital Signs Temp 98.4 F 03/16/25 14:49 Pulse 101 H 03/16/25 14:49 Resp 19 H 03/16/25 14:49 BP 130/74 03/16/25 14:49 Pulse Ox 96 03/16/25 14:49 O2 Del Method Room Air 03/16/25 04:00 Discharge Plan Discharge Patient Disposition: Home Condition: Stable Prescriptions: New levetiracetam [Keppra] 750 mg tablet 750 mg PO BID Qty: 60 0RF Continued amlodipine 10 mg tablet 10 mg PO DAILY Qty: 90 1RF losartan-hydrochlorothiazide 100-12.5 mg tablet See Rx Instructions .ROUTE .COMPLEX Qty: 90 1RF Dose Instruction: TAKE 1 TABLET BY MOUTH ONCE DAILY FOR HIGH BLOOD PRESSURE Rx Instructions: TAKE 1 TABLET BY MOUTH ONCE DAILY FOR HIGH BLOOD PRESSURE metoprolol succinate 50 mg tablet extended release 24 hr 50 mg PO BID Qty: 180 1RF Safety Deposit Boxes Custodian OK for DC: Neurology Discharge Order = DC NOW: Discharge Order (Routine); Ordered 03/16/25 Ordered By: Heladio Lopez Other Ambulatory Orders: EEG electroencephalogram (Routine) Timeframe: 3 Days Facility: [facility] - Location: Neurology Ordered By: Heladio Lopez MR head orbits wo con 64612/[id number] (Routine) Timeframe: 1 Week Facility: [facility] - Location: Radiology Ordered By: Heladio Lopez Referrals: Yaa Jiménez MD [Physician, Neurology] - 07/07/25 9:00 am Referral Note: seizures work up discharged on Diaz Franco MD [Primary Care Provider, Family Practice] - 03/29/25 9:30 am Referral Note: post discharge follow up Discharge Diet: Advance as tolerated Discharge Activity: Resume usual activity Patient Instructions: Levetiracetam (By mouth) (Keppra, Keppra XR, Spritam, Elepsia XR), Opioid Safety, Patient Portal & Leobardo Instructions, Seizures Discharge Attestations Time Spent in Discharge Care*: greater than 30 min Specific Discharge Activities: educating patient, educating and/or supporting family/caregiver, discussing with pcp/other providers, discussing with oil field caser/social workers/dc planners, documenting/other paperwork and evaluating patient/reviewing data Status at Discharge: Cognitive status at discharge: cognitively intact, Behavioral status at discharge: cooperative, Functional status at discharge: independent ambulation, Overall status at discharge: patient is back to baseline Quality Metrics Clinical Quality Measures [ No reported AMI, CVA or VTE this stay] Coding Level of Care Code Acute Code for Chg Fwd Diagnoses Seizure R56.9 Hyperammonemia E72.20 Lactic acidosis E87.20 Sleep apnea-like behavior G47.39 BMI 40.0-44.9, adult Z68.41 Primary hypertension I10 Hypertension type: primary hypertension
== END 2025-03-16 14:40 | disposition home or self-care (01) ==
LOC: ER 05:03 → MEDSURG 06:21
PROVIDERS: Admitting Provider Internal Medicine; Emergency Provider Student in an Organized Health Care Education/Training Program; PCP Family Medicine; Visit Provider Student in an Organized Health Care Education/Training Program
DX: R56.9 Unspecified convulsions (principal); E72.20 Disorder of urea cycle metabolism, unspecified; E87.20 Acidosis, unspecified; G47.39 Other sleep apnea; I10 Essential (primary) hypertension; E66.01 Morbid (severe) obesity due to excess calories; Z68.42 Body mass index [BMI] 45.0-49.9, adult
CPT/HCPCS: 36415; 70450; 71260; 72125; 74177; 80053; 80306; 80307; 81001; 82140; 82550; 82803; 83036; 83605; 83735; 84100; 84145; 84439; 84443; 84481; 85025; 85610; 86850; 86900; 87040; 93005; 96372; G0378; J0692; J1650; J1953; J2250; J3372; J3480; J7030; J9999